=== PATIENT | male | born 1960 | race Caucasian/White ===

== ENCOUNTER 2020-03-19 19:47 | Emergency (ER) | payer BC ==
[~2020-03-19] VITALS: Ht 182.9 cm; Wt 131.5 kg
[2020-03-19 19:49] VITALS: BP 14/63
--- NOTE | 2020-03-19 19:55 | NUR ---
PT AMBULATED TO BED 03 WITH STEADY GAIT.
--- NOTE | 2020-03-19 20:00 | NUR ---
PATIENT PRESENTS TO ED WITH LUMP AND PAIN UNDER RIGHT ARM NEAR ARMPIT SINCE SUNDAY . PT STATES IT IS A DULL THROBBING PAIN. SKIN IS INTACT AND SLIGHTLY SWOLLEN AND RED. DENIES N/V/D; SKIN IS PINK/WARM/DRY; AAOX4 WITH EVEN AND STEADY GAIT; LUNGS CLEAR BL; HR EVEN AND REGULAR; PT DENIES ANY FEVER, CP, SOB, OR COUGH AT THIS TIME; PATIENT STATES PAIN OF 0/10 AT THIS TIME; VSS; PATIENT POSITIONED FOR COMFORT; HOB ELEVATED; BEDRAILS UP X2; BED DOWN. ER MD MADE AWARE OF PT STATUS.
[2020-03-19] MEDS ORDERED: CLINDAMYCIN 600 MG/4 ML VIAL IM ONE (20:20)
[2020-03-19] MEDS ORDERED: KETOROLAC 30 MG/ML VIAL IM ONE (20:20)
[2020-03-19] MEDS ORDERED: cefTRIAXone 1,000 MG in LIDOCAINE MPF 1% 2.1 ML IM ONE (20:20)
[2020-03-19] MEDS ORDERED: cefTRIAXone 1,000 MG VIAL ONE (20:34)
[2020-03-19] MEDS ORDERED: LIDOCAINE MPF 1% 5 ML ONE (20:35)
[2020-03-19 20:53] VITALS: BP 14/63
--- NOTE | 2020-03-19 20:53 | NUR ---
Patient discharged with v/s stable. Written and verbal after care instructions given and explained. Patient alert, oriented and verbalized understanding of instructions. Ambulatory with steady gait. All questions addressed prior to discharge. ID band removed. Patient advised to follow up with PMD. Rx of IBUPROFEN, KEFLEX AND CLINDAMYCIN given. Patient educated on indication of medication including possible reaction and side effects. Opportunity to ask questions provided and answered.
== END 2020-03-19 20:53 | disposition home or self-care (01) ==
LOC: MED 19:47
DX: L03.313 Cellulitis of chest wall (principal); L02.511 Cutaneous abscess of right hand; Z71.6 Tobacco abuse counseling
CPT/HCPCS: 96372; 99284; J0696; J1885; J2001; J3490

== ENCOUNTER 2022-12-02 12:48 | Emergency (ER) | payer BC ==
[~2022-12-02] VITALS: Ht 182.9 cm; Wt 127.0 kg
[2022-12-02 13:07] VITALS: BP 129/79; PULSE 84; RESP 20; TEMP 97.7; O2SAT 95
[2022-12-02 14:29] LABS: BASOPHILS # (AUTO) 0.2 K/uL (0.00-0.22); BASOPHILS % (AUTO) 1.4 % (0.0-2.0); EOSINOPHILS # (AUTO) 0.9 K/uL (0-0.4); EOSINOPHILS % (AUTO) 7.3 % (0.0-4.0); HEMATOCRIT 44.4 % (36-52); HEMOGLOBIN 15.2 g/dL (12.0-18.0); LYMPHOCYTES # (AUTO) 2.3 K/uL (2.0-11.5); LYMPHOCYTES % (AUTO) 18.8 % (20.5-51.1); MEAN CORPUSCULAR HEMOGLOBIN 33 pg (27-31); MEAN CORPUSCULAR HGB CONC 34 g/dL (33-37); MEAN CORPUSCULAR VOLUME 95.8 fL (80-94); MONOCYTES # (AUTO) 1.1 K/uL (0.8-1.0); MONOCYTES % (AUTO) 9.3 % (1.7-9.3); NEUTROPHILS # (AUTO) 7.8 K/uL (1.8-7.7); NEUTROPHILS % (AUTO) 63.2 % (42.2-75.2); PLATELET COUNT (AUTO) 363 K/uL (140-450); RED BLOOD CELL COUNT(AUTO) 4.63 MIL/uL (4.20-6.10); RED CELL DISTRIBUTION WIDTH 13.5 % (11.6-13.7); WHITE BLOOD COUNT (AUTO) 12.4 K/uL (4.8-10.8)
[2022-12-02 14:53] LABS: ALBUMIN 3.1 g/dL (3.4-5.0); ANION GAP 12.3 (8-16); CALCIUM 8.7 mg/dL (8.5-10.1); CARBON DIOXIDE 26.7 mmol/L (21-32); CREATININE 1.3 mg/dL (0.6-1.3); TOTAL BILIRUBIN 0.3 mg/dL (0.0-1.0); TOTAL PROTEIN, SERUM 7.2 g/dL (6.4-8.2)
[2022-12-02 15:04] LABS: THYROID STIMULATING HORMONE 10.53 uIU/mL (0.34-3.74)
[2022-12-02] MEDS ORDERED: AZIT250T4 PO ×2 (16:06→16:26)
[2022-12-02] MEDS ORDERED: ALBU0.0912 INH ×2 (16:06→16:26)
[2022-12-02] MEDS ORDERED: AMOX-999 PO ×2 (16:06→16:26)
[2022-12-02 16:37] VITALS: BP 133/70; PULSE 80; RESP 20; TEMP 97.7; O2SAT 95
== END 2022-12-02 16:37 | disposition home or self-care (01) ==
LOC: MED 12:48
DX: I50.9 Heart failure, unspecified (principal); J90 Pleural effusion, not elsewhere classified; Z79.899 Other long term (current) drug therapy
CPT/HCPCS: 36415; 71045; 80053; 83880; 84443; 84484; 85025; 93005; 99285